=== PATIENT | female | born 1980 | race Caucasian/White ===

== ENCOUNTER 2017-03-26 15:18 | Inpatient (IN) | payer SELFPAY ==
[~2017-03-26] VITALS: Ht 167.6 cm; Wt 63.0 kg
--- NOTE | 2017-03-26 15:40 | NUR ---
PT CAME IN FOR EPIGASTIRC PAIN WITH NAUSEA AND VOMITING SINCE YESTERDAY. NAD NOTED. VSS. SEEN BY MD FOR EVAL. SAFETY AND COMFORT MEASURES PROVIDED. IV ACCESS STARTED. BLOOD DRAWN FOR LABS. WILL MONITOR.
[2017-03-26] MEDS ORDERED: ONDANSETRON HCL/PF 4 MG/2 ML VIAL IVP ONE (16:30)
[2017-03-26] MEDS ORDERED: IV NS 0.9% 1,000 ML BAG IV ONE (16:30)
[2017-03-26] MEDS ORDERED: HYDROMORPHONE INJ 2 MG/ML DISP.SYRIN IV ONE (16:30)
--- NOTE | 2017-03-26 16:30 | NUR ---
PT MEDICATED ORDERED.
[2017-03-26] MEDS ORDERED: ONDANSETRON HCL/PF 4 MG/2 ML VIAL ONE (16:33)
[2017-03-26] MEDS ORDERED: HYDROMORPHONE INJ 2 MG/ML DISP.SYRIN ONE ×3 (16:33→21:23)
[2017-03-26 16:42] LABS: HEMATOCRIT 41 % (33-45); HEMOGLOBIN 13.7 g/dL (11.5-14.8); MEAN CORPUSCULAR HEMOGLOBIN 28 PG (26.0-33.0); MEAN CORPUSCULAR HGB CONC 33 g/dl (31.0-36.0); MEAN CORPUSCULAR VOLUME 84 fL (82-100); PLATELET COUNT (AUTO) 254 /CMM (150-450); RDW COEFFICIENT OF VARIATION 17.2 (11.5-15.0); WHITE BLOOD COUNT (AUTO) 16.5 K/uL (4.3-11.0)
[2017-03-26 16:43] LABS: APPEARANCE,URINE Clear (CLEAR); BILIRUBIN,URINE Negative (NEGATIVE); BLOOD, URINE Moderate Ery/uL (NEGATIVE); COLOR,URINE Yellow (YELLOW); KETONES,URINE Trace (NEGATIVE); LEUKOCYTE ESTERASE ,URINE Trace (NEGATIVE); NITRITE, URINE Negative (NEGATIVE); PH,URINE 8.5 (5.0-8.0); PROTEIN,URINE Negative (NEGATIVE); UGLUCOSE Negative (NEGATIVE); UROBILINOGEN,URINE 0.2 EU/dL (0.2)
[2017-03-26 16:49] LABS: CALCIUM, SERUM 9.6 mg/dL (8.5-10.1); CREATININE 0.6 mg/dL (0.6-1.3)
[2017-03-26 16:54] LABS: ALBUMIN 4.3 g/dL (3.4-5.0); BILIRUBIN,TOTAL 0.8 mg/dL (0.2-1.0); TOTAL PROTEIN, SERUM 7.7 g/dL (6.4-8.2)
[2017-03-26 17:07] LABS: BACTERIA,URINE Rare /HPF (None Seen); SQUAMOUS EPITHELIAL CELL,UR Few /HPF (None Seen)
[2017-03-26] MEDS ORDERED: HYDROMORPHONE 1 MG/1 ML DISP.SYRIN IV ONE (17:30)
--- NOTE | 2017-03-26 17:43 | NUR ---
FABIENNE ESPINAL ON THE PHONE WITH DR.SAMUEL MARTINEZ
--- NOTE | 2017-03-26 17:44 | NUR ---
PAGED DR ALFRED
--- NOTE | 2017-03-26 17:52 | NUR ---
PATIENT WILL GO TO [facility], ADMITTING DR ALFRED,
[2017-03-26] MEDS ORDERED: PIPERACILLIN /TAZOBACTAM 3.375 G in IV D5W 50 ML IV ONE (18:00)
[2017-03-26 18:03] LABS: BAND % (MANUAL) 2 % (0.0-5.0); LYMPHOCYTES % (MANUAL) 7 % (16-48); MONOCYTES % (MANUAL) 6 % (0-11.0); NEUTROPHILS % (MANUAL) 84 (42-76); REACTIVE LYMPHOCYTES 1 % (0-0)
--- NOTE | 2017-03-26 18:52 | NUR ---
REPORT GIVEN TO SAEED LYONS FOR [facility].
[2017-03-26] MEDS ORDERED: MAG HYDROX/AL HYDROX/SIMETH 30 ML UDC PO PRN (19:00)
[2017-03-26] MEDS ORDERED: MAGNESIUM HYDROXIDE 30 ML UDC PO PRN (19:00)
[2017-03-26] MEDS ORDERED: ZOLPIDEM TARTRATE 5 MG TABLET PO PRN (19:00)
[2017-03-26] MEDS ORDERED: Z GUARD REMEDY 2 OZ OINT TP PRN (19:00)
[2017-03-26] MEDS ORDERED: ONDANSETRON HCL/PF 4 MG/2 ML VIAL IVP PRN (19:00)
[2017-03-26] MEDS ORDERED: ACETAMINOPHEN 325 MG TABLET PO PRN (19:00)
--- NOTE | 2017-03-26 19:35 | NUR ---
MS/RN OPENING NOTES RECEIVED PT FROM [facility] AT 1926 ACLS PROTOCOL VIA W/C. A/O X 4. DOMINICAN SPEAKING. HEAD TO TOE ASSESSMENT SKIN IS INTACT, BREATHING EVEN AND UNLABORED, ADMIT TO M/S, NPO, TOLERATING ROOM AIR 99% NO APPARENT SIGN OF DISTRESS. BED IN LOW/LOCKED POSITION WITH CALL LIGHT IN REACH. SIDE RAILS UPX2 AND BED ALARM ON FOR SAFETY. WILL CONTINUE TO MONITOR
[2017-03-26] MEDS: IV D5/0.45 NACL 1,000 ML IV PRN (19:49)
[2017-03-26 20:00] VITALS: BP 104/61
--- NOTE | 2017-03-26 20:00 | NUR ---
CHECKLIST WAS DONE PT SIGNED CONSENT FOR CONTRAST CT ABDOMEN/PELVIS ORAL AND IV PT NOT ALLERGIC TO IODINE AND SHELLFISH WORM RAISER GOT THE CONSENT
[2017-03-26] MEDS ORDERED: IOHEXOL-300 100 ML VIAL IV ONE (20:09)
[2017-03-26] MEDS ORDERED: DIATR MEGLU/DIATRIZOATE SODIUM 120 ML BOTTLE (GASTROGRAPHIN) ONE (20:09)
[2017-03-26] MEDS ORDERED: IV NS 0.9% 250 ML IV ONE (20:09)
--- NOTE | 2017-03-26 20:10 | NUR ---
SUZIE ZENDEJAS DR. CALLED AND ORDERED REPEAT CT ABDOMEN AND PELVIS WITH CONTRAST ORAL AND IV NOTED AND CARRIED OUT Addendum: 03/26/17 at 2237 by DAYAMI FOY RN ADDENDUM: STAT ORDER
[2017-03-26] MEDS: HYDROMORPHONE INJ 2 MG/ML DISP.SYRIN IV PRN (21:25)
--- NOTE | 2017-03-26 22:00 | NUR ---
RADIOLOGIST CAME AND [employer] SUPERVISOR THE PT VIA W/C PT WILL GO TO RADIOLOGY
--- NOTE | 2017-03-26 22:30 | NUR ---
PT CAME BACK TO ROOM FROM CT NO INCIDENT HAPPENED PT BACK TO BED
--- NOTE | 2017-03-26 23:54 | NUR ---
MS RN NOTES READ BACK RECENTLY CT SCAN OF ABDOMEN AND PELVIS RESULTS NO NEW ORDERS AT THIS TIME
[2017-03-27] MEDS ORDERED: PIPERACILLIN /TAZOBACTAM 3.375 G VIAL IV ONE (00:42)
[2017-03-27] MEDS ORDERED: PIPERACILLIN /TAZOBACTAM 2.25 G VIAL IV ONE ×2 (01:18→05:40)
[2017-03-27] MEDS: PIPERACILLIN /TAZOBACTAM 4.5 G in IV D5W 50 ML IV SCH ×2 (01:22→06:08)
[2017-03-27] MEDS: IV D5/0.45 NACL 1,000 ML IV PRN ×2 (03:21→22:07)
--- NOTE | 2017-03-27 06:35 | NUR ---
MS RN CLOSING NOTES ASLEEP AND EASILY AWAKEN, STABLE CONDITION. MAINTAINS NPO, HEAD OF BED ELEVATED FOR BETTER LUNG EXPANSION. TOLERATING ROOM AIR 02 SAT AT 98%. NO S/S OF ACUTE DISTRESS, NO SOB, NO COMPLAINS OF CHEST PAIN, RESPIRATIONS EVEN AND UNLABORED. PATIENT DENIES PAIN AT THIS TIME. AFEBRILE, ALL NURSING CARE RENDERED, NEEDS ATTENDED AND ANTICIPATED, KEPT CLEAN AND DRY AND COMFORTABLE, GOOD SKIN CARE PROVIDED. SAFETY HAZARD FREE ENVIRONMENT.. ON ATB WITH NO A/R NOTED. CALL LIGHT WITHIN EASY TO REACH, ON LOW BED AT ALL TIMES TO ENSURE SAFETY, WILL ENDORSE TO THE NEXT SHIFT CONTINUE PLAN OF CARE.
[2017-03-27 06:53] LABS: BASOPHILS % (AUTO) 0.2 % (0.0-2.0); HEMATOCRIT 34 % (33-45); HEMOGLOBIN 11.4 g/dL (11.5-14.8); LYMPHOCYTES # (AUTO) 1.8 /CMM (0.8-4.8); LYMPHOCYTES % (AUTO) 12.6 % (20.0-44.0); MEAN CORPUSCULAR HEMOGLOBIN 28 PG (26.0-33.0); MEAN CORPUSCULAR HGB CONC 34 g/dl (31.0-36.0); MEAN CORPUSCULAR VOLUME 84 fL (82-100); MONOCYTES # (AUTO) 0.9 /CMM (0.1-1.30); MONOCYTES % (AUTO) 6.8 % (2.0-12.0); NEUTROPHILS # (AUTO) 11.2 /CMM (1.8-8.9); NEUTROPHILS % (AUTO) 80.4 % (43.0-81.0); PLATELET COUNT (AUTO) 206 /CMM (150-450)
[2017-03-27 07:07] LABS: CALCIUM, SERUM 8.3 mg/dL (8.5-10.1); CREATININE 0.5 mg/dL (0.6-1.3); MAGNESIUM 1.9 mg/dL (1.8-2.4); PHOSPHORUS 3.1 mg/dL (2.5-4.9)
[2017-03-27 07:12] LABS: POTASSIUM 3.4 mmol/L (3.5-5.1)
--- NOTE | 2017-03-27 07:47 | NUR ---
RN OPENING NOTES RECEIVED PATIENT RESTING COMFORTABLY IN BED. AOX4. DENIES AND CP OR SOB. COMPLAINING OF RIGHT LOWER QUADRANT PAIN 9/10 WELL HEADACHE. WILL PROVIDE APPROPRIATE INTERVENTIONS. RESPIRATIONS EVEN AND UNLABORED. NO ACUTE DISTRESS NOTED. ANTICIPATING PATIENT TO HAVE PROCEDURE TODAY. BED LOCKED IN THE LOWEST POSITION WITH SIDE RAILS UP X2. CALL LIGHT WITHIN REACH. WILL CONTINUE TO MONITOR ASSESS AND EDUCATE PATIENT THROUGHOUT SHIFT.
[2017-03-27 08:00] VITALS: BP 100/49
[2017-03-27] MEDS: HYDROMORPHONE INJ 2 MG/ML DISP.SYRIN IV PRN ×2 (09:45→21:51)
--- NOTE | 2017-03-27 10:24 | NUR ---
RN NOTES PATIENT TO BE TAKEN TO OR FOR LAP. APPENDECTOMY. PROCEDURE TO BE AT 1100. CONSENT SIGNED AND PLACED IN CHART. PATIENT TO BE SEEN BY DR. MARTINEZ PRIOR TO PROCEDURE. WILL CONTINUE TO MONITOR.
[2017-03-27] MEDS ORDERED: LIDOCAINE 1% INJ 50 ML MDV IJ ONE (10:42)
[2017-03-27] MEDS ORDERED: BUPIVACAINE 0.25% 75 MG/30 ML VIAL ONE (10:42)
[2017-03-27] MEDS ORDERED: MIDAZOLAM HCL 2 MG/2ML VIAL ONE (11:05)
[2017-03-27] MEDS ORDERED: FENTANYL PF 100MCG/2ML AMPUL ONE (11:05)
--- NOTE | 2017-03-27 11:05 | NUR ---
RN NOTES PATIENT TAKEN TO OR FOR APPENDECTOMY. WILL WAIT FOR PATIENT TO RETURN. ZOSYN TO BE GIVEN IN OR.
[2017-03-27] MEDS ORDERED: ROCURONIUM BROMIDE 50 MG/5 ML ONE (11:06)
[2017-03-27] MEDS: PIPERACILLIN /TAZOBACTAM 3.375 G in IV D5W 50 ML IV SCH ×3 (11:42→23:56)
[2017-03-27] MEDS ORDERED: LIDOCAINE 0.5%-EPI 1:200,000 50 ML VIAL ONE (11:48)
--- NOTE | 2017-03-27 13:29 | NUR ---
RN ADMIN NOTES ZOSYN GIVEN IN OR DURING PROCEDURE @6228. ZOSYN DELIVERED BY PHARMACIST KEVIN
[2017-03-27] MEDS: POTASSIUM CL. PREMIX PERIPHER. 50 ML IV SCH ×2 (15:10→16:43)
[2017-03-27 15:47] VITALS: BP 98/51
--- NOTE | 2017-03-27 19:20 | NUR ---
RN CLOSING NOTES PATIENT RESTING COMFORTABLY IN BED. AOX4. DENIES SOB AND CP. NO PAIN AT THIS TIME. IV ACCES PATENT AND INTACT. NO ACUTE DISTRESS NOTED. RESPIRATIONS EVEN AND UNLABORED. 3 LAPAROSCOPIC SITES NOTED. WILL ENDORSE. PATIENT ON CLEAR LIQUID DIET. TO BE ADVANCED TOLERATED. K+ REPLACED X2. ALL NEEDS MET ALL MEDS GIVEN APPROPRIATE. WILL ENDORSE TO NIGHT RN FOR ESTELA.
--- NOTE | 2017-03-27 19:49 | NUR ---
RN NOTES RECEIVED PATIENT IN BED, ALERT AND ORIENTED X4, CALM, NO SOB, NO RESPIRATORY DISTRESS, TOLERATING ROOM AIR, S/P APPENDECTOMY THIS AM. NO COMPLAIN OF ABDOMINAL PAIN AT THIS TIME, ABLE TO TOLERATE LIQUIDS WITHOUT VOMITING, ABLE TO GET OUT OF BED SLOWLY, ABLE TO VOID WITHOUT DIFFICULTY. LEFT AC #18 IS PATENT AND INFUSING WELL, NEEDS ATTENDED, CALL LIGHT WITHIN REACH.
[2017-03-27 20:00] VITALS: BP 102/58
[2017-03-27 20:04] VITALS: BP 102/58
--- NOTE | 2017-03-27 21:58 | NUR ---
RN NOTES COMPLAINING OF ABDOMINAL PAIN OF 8, S/P APPENDECTOMY IN AM, VITAL SIGNS ARE STABLE, GIVEN DILAUDID 0.5 MG IVP, KEPT SAFE AND COMFORTABLE, WILL CONTINUE TO MONITOR.
[2017-03-28] MEDS: HYDROCODONE/APAP 5/325MG 1 EACH TABLET PO PRN ×3 (04:31→19:58)
[2017-03-28] MEDS: PIPERACILLIN /TAZOBACTAM 3.375 G in IV D5W 50 ML IV SCH ×3 (05:33→17:22)
--- NOTE | 2017-03-28 06:30 | NUR ---
RN NOTES PATIENT IN BED, ALERT AND AWAKE, NO SOB, NO DISTRESS, NO COMPLAIN OF PAIN, GIVEN PAIN MEDICATION DURING SHIFT, LEFT AC PERIPHERAL LINE IS PATENT AND INFUSING WELL, ADVANCED DIET TO SOFT DIET, NO VOMITING, TOLERATING FLUIDS, ABDOMINAL SX INCISIONS ARE CLEAN, NO DRAINAGE, PASSING GAS, REPORTED X2 SOFT BM. ABLE TO AMBULATE TO THE TOILET, NEEDS ATTENDED, CALL LIGHT WITHIN REACH.
[2017-03-28 06:46] LABS: ALBUMIN 3.5 g/dL (3.4-5.0); BILIRUBIN,TOTAL 0.6 mg/dL (0.2-1.0); CALCIUM, SERUM 9.2 mg/dL (8.5-10.1); CREATININE 0.7 mg/dL (0.6-1.3); PHOSPHORUS 3.2 mg/dL (2.5-4.9); POTASSIUM 3.8 mmol/L (3.5-5.1); TOTAL PROTEIN, SERUM 7.2 g/dL (6.4-8.2)
--- NOTE | 2017-03-28 07:30 | NUR ---
MS/RN Patient received Patient received from lieutenant shift supervisor. Sleeping at this time, appears in no distress, will continue to monitor and ensure safety.
[2017-03-28 08:00] VITALS: BP 90/48
[2017-03-28] MEDS: PANTOPRAZOLE 40 MG TABLET.DR PO SCH (08:28)
--- NOTE | 2017-03-28 08:40 | NUR ---
MS/RN Pain Complaining of abdominal pain 6/0. Harrell one tablet administered as ordered. Will monitor effectiveness.
--- NOTE | 2017-03-28 09:10 | NUR ---
MS/RN Pain reassessment Pain scale now 2/10.
--- NOTE | 2017-03-28 10:15 | NUR ---
MS/RN Labs Labs reviewed, all within normal range.
--- NOTE | 2017-03-28 12:30 | NUR ---
MS/RN Diet Tolerating soft diet, taking 50% of lunch.
--- NOTE | 2017-03-28 15:06 | NUR ---
MS/RN S/B Dr Azevedo S/B Dr Azevedo - discharge planning for tomorrow. Encouraged to ambulate in hallways. Blood draw ordered for tomorrow.
[2017-03-28 16:00] VITALS: BP 92/48
--- NOTE | 2017-03-28 18:25 | NUR ---
MS/RN End note No changes in care. Continue to encourage to ambulate in hallways, heplock to left AC shows no signs of infiltration. Last pain medication administered at 0830. Discharge planing for tomorrow. Will endorse to transferrer.
--- NOTE | 2017-03-28 19:30 | NUR ---
MS/RN OPENING NOTES PT AWAKE, A/OX4, PRIMARILY [place] SPEAKING. MOTHER AT BEDSIDE. ON ROOM AIR, BREATHING EVEN AND UNLABORED. DENIES SOB. C/O INCISIONAL PAIN AND REQUESTING NORCO AT THIS TIME. INCISIONS CLEAN AND DRY. LEFT OPEN TO AIR. IV TO LAC PATENT AND INTACT. DR. MARTINEZ AT BEDSIDE TO ASSESS PATIENT. BED IN LOW/LOCKED POSITION WITH CALL LIGHT IN REACH. SIDE RAILS UPX2. WILL CONTINUE TO MONITOR
[2017-03-28 20:00] VITALS: BP 105/61
--- NOTE | 2017-03-28 21:45 | NUR ---
MS/RN NOTES PT AMBULATED APPROX 130 FT X4. TOLERATED WELL. ASSISTED BACK IN BED
[2017-03-29] MEDS: PIPERACILLIN /TAZOBACTAM 3.375 G in IV D5W 50 ML IV SCH ×3 (00:53→11:34)
[2017-03-29] MEDS: HYDROCODONE/APAP 5/325MG 1 EACH TABLET PO PRN ×2 (04:43→13:14)
[2017-03-29 06:56] LABS: BASOPHILS % (AUTO) 0.3 % (0.0-2.0); EOSINOPHILS # (AUTO) 0.1 /CMM (0.0-0.7); EOSINOPHILS % (AUTO) 1.2 % (0.0-6.0); HEMATOCRIT 32 % (33-45); HEMOGLOBIN 10.6 g/dL (11.5-14.8); LYMPHOCYTES # (AUTO) 2.1 /CMM (0.8-4.8); MEAN CORPUSCULAR HEMOGLOBIN 28 PG (26.0-33.0); MEAN CORPUSCULAR HGB CONC 33 g/dl (31.0-36.0); MEAN CORPUSCULAR VOLUME 86 fL (82-100); MONOCYTES # (AUTO) 0.6 /CMM (0.1-1.30); MONOCYTES % (AUTO) 8.5 % (2.0-12.0); NEUTROPHILS # (AUTO) 4.4 /CMM (1.8-8.9); PLATELET COUNT (AUTO) 203 /CMM (150-450); RDW COEFFICIENT OF VARIATION 17.2 (11.5-15.0); RED BLOOD CELL COUNT(AUTO) 3.73 MIL/uL (4.0-5.2); WHITE BLOOD COUNT (AUTO) 7.2 K/uL (4.3-11.0)
[2017-03-29 07:01] LABS: CALCIUM, SERUM 8.5 mg/dL (8.5-10.1); CREATININE 0.6 mg/dL (0.6-1.3); PHOSPHORUS 3.9 mg/dL (2.5-4.9); POTASSIUM 3.5 mmol/L (3.5-5.1)
--- NOTE | 2017-03-29 07:10 | NUR ---
MS/RN CLOSING NOTES PT AWAKE, RESTING COMFORTABLY IN BED. A/OX3. ON ROOM AIR, BREATHING EVEN AND UNLABORED. NO S/S OF SOB OR PAIN. MANAGED PAIN WITH PRN NORCO, SAYS IT HELPS. INCISION SITE CLEAN AND DRY. LEFT OPEN TO AIR. IV TO LAC PATENT AND INTACT. BED IN LOW/LOCKED POSITION WITH CALL LIGHT IN REACH. SIDE RAILS UPX2. ASSISTED WITH PT WITH AMBULATION, STEADY OF FEET, TOLERATED WELL. FOR POSSIBLE DISCHARGE TODAY. ENDORSED TO AM SHIFT ESTELA.
[2017-03-29 08:00] VITALS: BP 91/42
[2017-03-29] MEDS: PANTOPRAZOLE 40 MG TABLET.DR PO SCH (08:11)
--- NOTE | 2017-03-29 09:41 | NUR ---
RS RN OPENING NOTES PT A&0X3 RESTING LOW SEMI FOWLERS WITH BED IN LOWEST LOCKED POSITION, HANDRAILSX2 AND CALL RAND WITHIN REACH. PT TOLERATING ROOM AIR WITH NO SOB, LUNGS AUSCULTATED CLEAR THROUGHOUT. PT REPORTS NO PAIN AND IS NO OBVIOUS DISTRESS. IV LEFT AC G#18 FLUSHED AND PATENT. PT WITHOUT CONCERNS OR COMPLAINTS AT THIS TIME. WILL CONTINUE TO MONITOR.
--- NOTE | 2017-03-29 16:17 | NUR ---
MS RN D/C NOTES PT A&0X3 WITH FAMILY FRIEND PRESENT FOR TRANSPORTATION AND TRANSLATION. PT BELONGINGS REVIEWED WITH PATIENT AND ALL ITEMS ACCOUNTED FOR AND DOCUMENTED. IVC REMOVED AND NAD AT SITE. SURGICAL SITES PHOTOGRAPHED AND NAD AT SITESX3. PT AND PT'S FAMILY FRIEND BRIEFED ON D/C PACKET ITEMS INCLUDING EDUCATION, SCRIPT, FOLLOW UP INSTRUCTIONS AND CONTACT NUMBERS. PT AND PT'S FAMILY FRIEND ARE VERBALIZING UNDERSTANDING AND INTENT TO FOLLOW UP. NO CONCERNS OR COMPLAINT A THIS TIME.
== END 2017-03-29 15:45 | disposition home or self-care (01) | DRG 853 ==
LOC: ER 15:29 → MEDSG2 18:53
PROVIDERS: ADMIT Internal Medicine; ATTEND Internal Medicine
PROC: 0DTJ4ZZ Resection of Appendix, Percutaneous Endoscopic Approach (ICD-10-PCS; principal; 2017-03-27 11:00)
DX: A41.9 Sepsis, unspecified organism (principal); K35.2 Acute appendicitis with generalized peritonitis; E87.6 Hypokalemia; K38.1 Appendicular concretions; K21.9 Gastro-esophageal reflux disease without esophagitis; E83.51 Hypocalcemia
CPT/HCPCS: 36415; 80048-TC; 80053-TC; 80076-TC; 81000-TC; 83690-TC; 83735-TC; 84100-TC; 84703-TC; 85025-TC; 87081-TC; 88304-TC; 88305-TC; A4606; J1100; J1170; J1885; J2250; J2405; J2543; J2704; J2710; J3010; J3480; J3490; J7030; J7040; J7050; J7060; Q9963; Q9967; Z7610